=== PATIENT | male | born 1995 | race Caucasian/White ===

== ENCOUNTER 2016-09-10 18:46 | Emergency (ER) | payer SELFPAY ==
[2016-09-10 19:28] VITALS: BP 130/69
[2016-09-10] MEDS ORDERED: Lidocaine 2% PF * 5 ML VIAL INJ ONE (20:18)
--- NOTE | 2016-09-10 20:32 | RAD ---
INDICATION: Laceration between the first and second fingers. COMPARISON: No relevant prior exams available on the [facility] for comparison. TECHNIQUE: AP, lateral, and oblique views RIGHT hand. REPORT: Negative for radiopaque foreign body, subcutaneous emphysema, fracture, or articular malalignment. Unremarkable soft tissue contours. IMPRESSION: Negative radiographic exam of the RIGHT hand.
--- NOTE | 2016-09-10 22:18 | UC ---
Jose Alonso Rebecca, scribed for Anshul Zhu MD on 09/10/16 at 1948 . Laceration HPI - HPI Summary HPI Summary: Pt is a 21 y/o M who presents to [facility] c/o laceration to the R hand s/p knife injury. Approximately 1 hour [employer], the pt was trying to open something with a fishing knife when he slipped and the knife went straight into the space between the R thumb and forefinger. Reports approximately 1.5-2 inches of the knife went into his hand and that he believes the knife was dirty. Associated pain is currently mild, ranked 2/10. Initially there was slightly tingling, but now he denies any numbness or tingling. Sx aggravated and alleviated by nothing. Believes his last Tetanus shot was in 2013. - History Of Current Complaint Chief Complaint: UCLaceration Stated Complaint: PUNCTURE WOUND RIGHT HAND Time Seen by Provider: 09/10/16 19:33 Hx Obtained From: Patient Laceration Location: Hand - Right Mechanism Of Injury: Sharp Trauma - Fishing knife Onset/Duration: Lasting Hours, Still Present Severity: Mild Pain Intensity: 2 Pain Scale Used: 0-10 Numeric Aggravating Factors: Nothing Related History: Dominant Hand Left - Allergies/Home Medications Allergies/Adverse Reactions: Allergies Allergy/AdvReac Type Severity Reaction Status Date / Time No Known Allergies Allergy Verified 09/10/16 19:28 PMH/Surg Hx/FS Hx/Imm Hx Previously Healthy: Yes - Surgical History Surgical History: None - Family History Known Family History: Negative: Hypertension - Social History Alcohol Use: Rare Substance Use Type: None Smoking Status (MU): Light Every Day Tobacco Smoker Type: Cigars - Immunization History Most Recent Influenza Vaccination: no Vaccination Up to Date: Yes Review of Systems Constitutional: Negative Skin: Other - See Comments Eyes: Negative ENT: Negative Respiratory: Negative Cardiovascular: Negative Gastrointestinal: Negative Genitourinary: Negative Motor: Negative Neurovascular: Negative Musculoskeletal: Negative Neurological: Negative Psychological: Negative All Other Systems Reviewed And Are Negative: Yes - Comments Additional Review of Systems Comments: POSITIVE: Laceration to the R hand s/p knife injury. NEGATIVE: Numbness or tingling (initially there was slight tingling, but it has resolved.) Physical Exam Triage Information Reviewed: Yes Vital Signs: Initial Vital Signs Temp 98.3 F 09/10/16 19:25 Pulse 97 07/24/17 19:25 Resp 16 09/10/16 19:25 BP 130/69 09/10/16 19:25 Pulse Ox 100 09/10/16 19:25 Vital Signs Reviewed: Yes - Additional Comments The patient is well-nourished in no acute distress and in no acute pain. The skin is warm and dry and skin color reflects adequate perfusion. LInear laceration, about 1.5 cm logn, between the thumb and index finger of the right hand on the dorsal aspect in the web space. Respiratory: Chest is non-tender. Lungs are clear to auscultation and breath sounds are symmetrical and equal. Cardiovascular: Hear is regular rate and rhythm. There is no murmur or rub auscultated. There is no peripheral edema and pulses are symmetrical and equal. Musculoskeletal: No pain at all in the bone. FROM. Good capillary refill. Good pulses. Some tenderness in the first metacarpal phalangeal join. There is a lot fo ecchymosis in the thenor eminence. Neurological: Patient is alert and oriented to person, place and time. The patient has symmetrical motor strength in all four extremities. Cranial nerves are grossly intact. Deep tendon reflexes are symmetrical and equal in all four extremities. Psychiatric: The patient has an appropriate affect and does not exhibit any anxiety or depression. Laceration Repair - Laceration Repair 1 Description: Linear Laceration Size After Repair: Length (cm) - 1 cm, Depth (mm) - 10 mm/1 cm Anesthesia Used: 2.0% Lido - 5 cc into the wound Irrigation With Pressure Irrigation Device: Yes Closure Material: Sutures Closure Method: Single Layer Suture Of: Skin Suture Type: Prolene - 2 4.0 prolene sutures Diagnostics - Radiology Hand XR Xray Interpretation: No Acute Changes - Negative radiographic exam of the R hand Radiology Interpretation Completed By: Radiologist Laceration Course/Dx - Course/Dx Course Of Treatment: Pt is a 21 y/o M who presents to [facility] c/o laceration to the R hand s/p knife injury approxiamtely 1 hour [employer]. Reports approximately 1.5- 2 inches of the knife went into his hand and that he believes the knife was dirty. Associated pain is currently mild, ranked 2/10. Initially there was slightly tingling, but now he denies any numbness or tingling. Sx aggravated and alleviated by nothing. Believes his last Tetanus shot was in 2013. Hand XR reveals no acute findings. He will be D/C to home with Dx of 1 cm laceration on the R hand with repair. - Differential Dx - Laceration/Wound Differental Diagnoses: Fracture, Other - foreign body Provider Diagnoses: 1 cm laceration on the R hand with repair Discharge - Discharge Plan Condition: Stable Disposition: HOME Patient Education Materials: Care For Your Stitches (ED), Laceration (ED) Referrals: [facility] [Outside] () Additional Instructions: - Local wound care: cleanse 2 times per day with soap and water. Apply antibiotic ointment. - Follow up to have the stitches removed in 10 days. - Watch for signs of infection including redness, fever and drainage. The documentation as recorded by the Jose turk Rebecca accurately reflects the service I personally performed and the decisions made by me, Anshul Zhu MD.
== END 2016-09-10 20:56 | disposition home or self-care (01) ==
LOC: UCCORT 18:46
DX: S61.411A Laceration without foreign body of right hand, initial encounter (principal); F17.210 Nicotine dependence, cigarettes, uncomplicated; W26.0XXA Contact with knife, initial encounter
CPT/HCPCS: 12001; 99201; G0463

== ENCOUNTER 2016-09-17 14:03 | Emergency (ER) | payer SELFPAY ==
[2016-09-17 14:25] VITALS: BP 120/72
--- NOTE | 2016-09-17 14:36 | UC ---
HPI Wound/Suture Re-check - HPI Summary HPI Summary: patient had a puncture wound that had 2 stitches placed 7 days ago. the wound has healed well. - History Of Current Complaint Chief Complaint: UCWounds Stated Complaint: STITCHES REMOVAL Time Seen by Provider: 09/17/16 14:28 Hx Obtained From: Patient Onset/Duration: Sudden Onset, Lasting Days Severity: Mild - Allergies/Home Medications Allergies/Adverse Reactions: Allergies Allergy/AdvReac Type Severity Reaction Status Date / Time No Known Allergies Allergy Verified 09/17/16 14:25 PMH/Surg Hx/FS Hx/Imm Hx Previously Healthy: Yes - Surgical History Surgical History: None - Family History Known Family History: Negative: Hypertension - Social History Alcohol Use: Rare Substance Use Type: None Smoking Status (MU): Light Every Day Tobacco Smoker Type: Cigars - Immunization History Most Recent Influenza Vaccination: no Vaccination Up to Date: Yes Review of Systems Constitutional: Negative Skin: Other - healed puncture wound Eyes: Negative ENT: Negative Respiratory: Negative Cardiovascular: Negative Gastrointestinal: Negative Genitourinary: Negative Motor: Negative Neurovascular: Negative Musculoskeletal: Negative Neurological: Negative Psychological: Negative All Other Systems Reviewed And Are Negative: Yes Physical Exam Triage Information Reviewed: Yes Appearance: Well-Appearing, No Pain Distress, Well-Nourished Vital Signs: Initial Vital Signs Temp 97.7 F 09/17/16 14:21 Pulse 106 09/17/16 14:21 Resp 16 09/17/16 14:21 BP 120/72 09/17/16 14:21 Pulse Ox 100 09/17/16 14:21 Vital Signs Reviewed: Yes Eye Exam: Normal Eyes: Positive: Conjunctiva Clear ENT Exam: Normal Dental Exam: Normal Neck exam: Normal Respiratory Exam: Normal Cardiovascular Exam: Normal Abdominal Exam: Normal Bowel Sounds: Positive: Present Musculoskeletal Exam: Normal Neurological Exam: Normal Psychological Exam: Normal Skin: Positive: Other - 2 stiches in healing wound Course/Dx - Course Course Of Treatment: hx obtained, exam performed ,meds reviewed, 2 sutures removed, no further treatment necessary - Differential Dx - Laceration/Wound Differential Diagnoses: Suture Removal Provider Diagnoses: suture removal Discharge - Discharge Plan Condition: Stable Disposition: HOME Patient Education Materials: Stitches Removal (ED) Referrals: No Primary Care Phys,NOPCP [Primary Care Provider] - Additional Instructions: 1. keep the area clean and dry.
== END 2016-09-17 14:38 | disposition home or self-care (01) ==
LOC: UCCORT 14:03
DX: S61.431D Puncture wound without foreign body of right hand, subsequent encounter (principal); W26.9XXD Contact with unspecified sharp object(s), subsequent encounter; F17.210 Nicotine dependence, cigarettes, uncomplicated

== ENCOUNTER 2016-12-10 15:07 | Emergency (ER) | payer SELFPAY ==
--- NOTE | 2016-12-10 15:28 | UC ---
Respiratory Complaint HPI - History of Current Complaint Chief Complaint: UCRespiratory Stated Complaint: COUGH Time Seen by Provider: 12/10/16 15:27 Hx Obtained From: Patient - Allergies/Home Medications Allergies/Adverse Reactions: Allergies Allergy/AdvReac Type Severity Reaction Status Date / Time No Known Allergies Allergy Verified 09/17/16 14:25 PMH/Surg Hx/FS Hx/Imm Hx - Surgical History Surgical History: None - Family History Known Family History: Negative: Hypertension - Social History Alcohol Use: Rare Substance Use Type: None Smoking Status (MU): Light Every Day Tobacco Smoker Type: Cigars - Immunization History Most Recent Influenza Vaccination: no Vaccination Up to Date: Yes
[2016-12-10 15:29] VITALS: BP 149/70
--- NOTE | 2016-12-10 16:15 | UC ---
Respiratory Complaint HPI - HPI Summary HPI Summary: PND and cough for 3 weeks. Sick contacts - brother and sister with URI. Has been taking mucinex OTC - History of Current Complaint Chief Complaint: UCRespiratory Stated Complaint: COUGH Time Seen by Provider: 12/10/16 15:27 Hx Obtained From: Patient Onset/Duration: Gradual Onset Timing: Constant Severity Initially: Mild Severity Currently: Mild Character: Cough: Nonproductive Alleviating Factors: Nothing Associated Signs And Symptoms: Positive: Negative. Negative: Fever, Chills, Wheezing, Hemoptysis, Hoarseness, Sinus Discomfort - Risk Factors Pulmonary Embolism Risk Factors: Negative Cardiac Risk Factors: Negative Pseudomonas Risk Factors: Negative Tuberculosis Risk Factors: Negative - Allergies/Home Medications Allergies/Adverse Reactions: Allergies Allergy/AdvReac Type Severity Reaction Status Date / Time No Known Allergies Allergy Verified 12/10/16 15:29 Home Medications: Home Medications Acetaminophen W/ Dm [Daytime Cold Medicine] 1 liq PO DAILY PRN 12/10/16 [ History Confirmed 12/10/16] PMH/Surg Hx/FS Hx/Imm Hx Previously Healthy: Yes - Surgical History Surgical History: None - Family History Known Family History: Negative: Hypertension - Social History Alcohol Use: Occasionally Substance Use Type: None Smoking Status (MU): Light Every Day Tobacco Smoker Type: Cigarettes Amount Used/How Often: 1/2--1 PPD Length of Time of Smoking/Using Tobacco: 4-5 YRS Have You Smoked in the Last Year: Yes - Immunization History Most Recent Influenza Vaccination: no Vaccination Up to Date: Yes Review of Systems Constitutional: Fever Skin: Negative Eyes: Negative ENT: Sore Throat Respiratory: Cough Cardiovascular: Negative Gastrointestinal: Negative Genitourinary: Negative Neurological: Negative Psychological: Negative Is Patient Immunocompromised?: No All Other Systems Reviewed And Are Negative: Yes Physical Exam Triage Information Reviewed: Yes Appearance: Well-Appearing, Thin Vital Signs: Initial Vital Signs Temp 97.9 F 12/10/16 15:22 Pulse 86 12/10/16 15:22 Resp 20 12/10/16 15:22 BP 149/70 12/10/16 15:22 Pulse Ox 100 12/10/16 15:22 Vital Signs Reviewed: Yes Eye Exam: Normal Eyes: Positive: Conjunctiva Clear ENT Exam: Normal ENT: Positive: Hearing grossly normal, Pharynx normal, TMs normal. Negative: Pharyngeal erythema, Nasal congestion, Nasal drainage, TM bulging, TM red, Tonsillar swelling, Muffled/hoarse voice Neck exam: Normal Neck: Positive: Supple, Nontender, No Lymphadenopathy Respiratory Exam: Normal Respiratory: Positive: Chest non-tender, Lungs clear, Normal breath sounds, No accessory muscle use. Negative: Crackles, Rhonchi, Stridor, Wheezing Cardiovascular Exam: Normal Cardiovascular: Positive: RRR, No Murmur Neurological Exam: Normal Neurological: Positive: Alert. Negative: Fatigued, Lethargic Psychological Exam: Normal Psychological: Positive: Age Appropriate Behavior Skin Exam: Normal Skin: Negative: rashes UC Diagnostic Evaluation - Laboratory O2 Sat by Pulse Oximetry: 100 Respiratory Course/Dx - Course Course Of Treatment: Pt has tried OTC mucinex for the past week with little relief. Says that antibiotics have always worked well for him in the past when he gets bronchitis. I advised against this as his symptoms appear viral - he persisted that he would like an antibiotic. - Differential Dx/Diagnosis Differential Diagnosis/HQI/PQRI: Asthma, Influenza, Sinusitis Provider Diagnoses: Acute Bronchitis Discharge - Discharge Plan Condition: Stable Disposition: HOME Prescriptions: ceFUROXime TAB(*) [Ceftin TAB 250 MG(*)] 250 mg PO BID #20 tab Patient Education Materials: Acute Bronchitis (ED) Referrals: No Primary Care Phys,NOPCP [Primary Care Provider] - Additional Instructions: Drink plenty of fluids. If you develop a fever, new, or worsening symptoms please call our office or go to the ED.
== END 2016-12-10 16:40 | disposition home or self-care (01) ==
LOC: UCCORT 15:07
DX: J20.9 Acute bronchitis, unspecified (principal); F17.210 Nicotine dependence, cigarettes, uncomplicated
CPT/HCPCS: 99212; G0463

== ENCOUNTER 2017-12-12 20:50 | Emergency (ER) | payer MEDICAID ==
--- NOTE | 2017-12-13 10:30 | UC ---
Discharge - Sign-Out/Discharge Documenting (check all that apply): Post-Discharge Follow Up All imaging exams completed and their final reports reviewed: No Studies - Discharge Plan Condition: Stable Disposition: LEFT WITHOUT BEING SEEN Referrals: No Primary Care Phys,NOPCP [Primary Care Provider] - - Billing Disposition and Condition Condition: STABLE Disposition: Left Without Being Seen
== END 2017-12-12 21:12 | disposition left against medical advice (07) ==
LOC: UCCORT 20:50
DX: Z53.21 Procedure and treatment not carried out due to patient leaving prior to being seen by health care provider (principal)

== ENCOUNTER 2018-04-09 15:49 | Emergency (ER) | payer MEDICAID, OTHER ==
[2018-04-09 16:50] VITALS: BP 144/87
--- NOTE | 2018-04-09 17:04 | UC ---
Throat Pain/Nasal Nino HPI - HPI Summary HPI Summary: Cough and runny nose - History of Current Complaint Chief Complaint: UCGeneralIllness Stated Complaint: COUGH,RUNNY NOSE Time Seen by Provider: 04/09/18 17:03 Hx Obtained From: Patient Onset/Duration: Gradual Onset Severity: Mild Pain Intensity: 5 Cough: Nonproductive Associated Signs & Symptoms: Positive: Nasal Discharge - Allergies/Home Medications Allergies/Adverse Reactions: Allergies Allergy/AdvReac Type Severity Reaction Status Date / Time No Known Allergies Allergy Verified 04/09/18 16:50 Home Medications: Home Medications guaiFENesin ER TAB [Mucinex*] 600 mg PO BID PRN 04/09/18 [History Confirmed ] PMH/Surg Hx/FS Hx/Imm Hx Previously Healthy: Yes - Surgical History Surgical History: None - Family History Known Family History: Negative: Hypertension - Social History Alcohol Use: Occasionally Substance Use Type: None Smoking Status (MU): Light Every Day Tobacco Smoker Type: Cigars Amount Used/How Often: 1/2--1 PPD Length of Time of Smoking/Using Tobacco: 4-5 YRS Have You Smoked in the Last Year: Yes - Immunization History Most Recent Influenza Vaccination: no Vaccination Up to Date: Yes Review of Systems All Other Systems Reviewed And Are Negative: Yes Constitutional: Positive: Negative - Low grade fever here Skin: Positive: Negative Eyes: Positive: Negative ENT: Positive: Nasal Discharge, Sinus Congestion Respiratory: Positive: Negative, Cough - Non-productive occasional cough Cardiovascular: Positive: Negative Gastrointestinal: Positive: Negative Genitourinary: Positive: Negative Motor: Positive: Negative Neurovascular: Positive: Negative Musculoskeletal: Positive: Negative Neurological: Positive: Negative Psychological: Positive: Negative Is Patient Immunocompromised?: No Physical Exam Triage Information Reviewed: Yes Appearance: Well-Appearing, No Pain Distress, Well-Nourished Vital Signs: Initial Vital Signs Temp 99.4 F 04/09/18 16:45 Pulse 98 04/09/18 16:45 Resp 18 04/09/18 16:45 BP 144/87 04/09/18 16:45 Pulse Ox 100 04/09/18 16:45 Vital Signs Reviewed: Yes Eye Exam: Normal ENT: Positive: Nasal congestion - Clear nasal coryza, Nasal drainage Neck exam: Normal Neck: Positive: Supple, Nontender, No Lymphadenopathy Respiratory Exam: Normal Cardiovascular Exam: Normal Abdominal Exam: Normal Bowel Sounds: Positive: Present Musculoskeletal Exam: Normal Neurological Exam: Normal Psychological Exam: Normal Skin Exam: Normal Throat Pain/Nasal Course/Dx - Course Course Of Treatment: comfortable here in no distress. - Differential Dx/Diagnosis Provider Diagnosis: URI (upper respiratory infection) Discharge - Sign-Out/Discharge Documenting (check all that apply): Patient Departure All imaging exams completed and their final reports reviewed: No Studies - Discharge Plan Condition: Good Disposition: HOME Patient Education Materials: Upper Respiratory Infection (DC) Referrals: No Primary Care Phys,NOPCP [Primary Care Provider] - Additional Instructions: Go home and rest, increase fluids, may take some over the counter cold medicine as directed. Definite follow up with your primary care provider if no improvement in 2-3 days. Try to stop smoking. - Billing Disposition and Condition Condition: GOOD Disposition: Home
[2018-04-09 17:05] LABS: Influenza A Molecular NEGATIVE (Negative); Influenza B Molecular NEGATIVE (Negative)
== END 2018-04-09 17:25 | disposition home or self-care (01) ==
LOC: UCCORT 15:49
DX: J06.9 Acute upper respiratory infection, unspecified (principal); F17.210 Nicotine dependence, cigarettes, uncomplicated
CPT/HCPCS: 99211; G0463

== ENCOUNTER 2018-06-02 13:59 | Emergency (ER) | payer OTHER ==
--- NOTE | 2018-06-02 15:18 | UC ---
Respiratory Complaint HPI - HPI Summary HPI Summary: Pt was seen here a few weeks ago with cold symptoms. He's not sure if he fully recovered but now he has head congestion, mild sinus pressure, cough which is occasionally productive. - History of Current Complaint Stated Complaint: CHEST CONGESTION,COUGH Time Seen by Provider: 06/02/18 15:17 Hx Obtained From: Patient Onset/Duration: Gradual Onset Timing: Constant Severity Initially: Moderate Severity Currently: Mild Character: Cough: Productive - Occasionally productive unsure of color Associated Signs And Symptoms: Positive: URI, Nasal Congestion, Sinus Discomfort - Risk Factors Pulmonary Embolism Risk Factors: Negative Cardiac Risk Factors: Negative Pseudomonas Risk Factors: Negative Tuberculosis Risk Factors: Negative - Allergies/Home Medications Allergies/Adverse Reactions: Allergies Allergy/AdvReac Type Severity Reaction Status Date / Time No Known Allergies Allergy Verified 06/02/18 15:16 PMH/Surg Hx/FS Hx/Imm Hx Previously Healthy: Yes - Had bronchitis a few weeks ago - Surgical History Surgical History: None - Family History Known Family History: Negative: Hypertension - Social History Alcohol Use: Occasionally Substance Use Type: None Smoking Status (MU): Light Every Day Tobacco Smoker Type: Cigars Amount Used/How Often: 1/2--1 PPD Length of Time of Smoking/Using Tobacco: 4-5 YRS Have You Smoked in the Last Year: Yes - Immunization History Most Recent Influenza Vaccination: no Vaccination Up to Date: Yes Review of Systems All Other Systems Reviewed And Are Negative: Yes ENT: Positive: Nasal Discharge, Sinus Congestion, Sinus Pain/Tenderness Respiratory: Positive: Cough Is Patient Immunocompromised?: No Physical Exam Triage Information Reviewed: Yes Appearance: Well-Appearing, No Pain Distress, Well-Nourished Vital Signs Reviewed: Yes Eye Exam: Normal ENT: Positive: Nasal congestion, Nasal drainage, TMs normal, Uvula midline - Inflamed right turbinates with purulent drainage, green post-nasal drainage. Negative: Tonsillar swelling, Tonsillar exudate, Trismus, Muffled voice, Hoarse voice Neck exam: Normal Respiratory Exam: Normal Cardiovascular Exam: Normal Musculoskeletal Exam: Normal Neurological Exam: Normal Psychological Exam: Normal Skin Exam: Normal Respiratory Course/Dx - Course Course Of Treatment: Comfortable here. Will treat for sinusitis. Lings were clear so I think the greenish sputum is more from the sinuses. - Differential Dx/Diagnosis Provider Diagnosis: Sinusitis Discharge - Sign-Out/Discharge Documenting (check all that apply): Patient Departure All imaging exams completed and their final reports reviewed: No Studies - Discharge Plan Condition: Fair Disposition: HOME Prescriptions: Amoxicillin/Clavulanate TAB* [Augmentin TAB 875*] 875 mg PO BID 10 Days #20 tab Patient Education Materials: Sinusitis (ED) Referrals: No Primary Care Phys,NOPCP [Primary Care Provider] - [facility] [Outside] Additional Instructions: Increase fluids, Take the antibiotic with food, follow up with your doctor if no improvement in 4-5 days. - Billing Disposition and Condition Condition: FAIR Disposition: Home
[2018-06-02 15:21] VITALS: BP 132/79
== END 2018-06-02 15:56 | disposition home or self-care (01) ==
LOC: UCCORT 13:59
DX: J01.90 Acute sinusitis, unspecified (principal); F17.210 Nicotine dependence, cigarettes, uncomplicated
CPT/HCPCS: 99212; G0463

== ENCOUNTER 2019-03-28 11:43 | Emergency (ER) | payer SELFPAY ==
[2019-03-28] MEDS ORDERED: Ibuprofen TAB* 600 MG PO ONE (12:49)
--- NOTE | 2019-03-28 12:51 | UC ---
Back Pain HPI - HPI Summary HPI Summary: 23-year-old male comes in with a chief complaint of low back pain. 2 days ago patient reports he was snowboarding when he fell on ice onto his left low back.. Pain right away but he tells me that it wasn't very bad. He was able to snowboard down the rest of the hill. He got into a car and then when he got out of the car the pain was worse. Denies any anterior abdominal pain. Has not seen any blood in his urine. No change in appetite no change in bowels. Pain is worse with palpation and also movement. Yesterday he did shovel snow and also helped push a car that was stuck. He has not taken any ibuprofen or Tylenol. He did put icy hot on which did not help. Patient denies feeling lightheaded. Denies any other Injury or pain. - History of Current Complaint Chief Complaint: UCBackPain Stated Complaint: S/P FALL 2/ BACK INJURY Time Seen by Provider: 03/28/19 12:24 Pain Intensity: 10 - Allergies/Home Medications Allergies/Adverse Reactions: Allergies Allergy/AdvReac Type Severity Reaction Status Date / Time No Known Allergies Allergy Verified 03/28/19 12:27 PMH/Surg Hx/FS Hx/Imm Hx Previously Healthy: Yes - Surgical History Surgical History: None - Family History Known Family History: Negative: Hypertension - Social History Alcohol Use: Occasionally Substance Use Type: None Smoking Status (MU): Light Every Day Tobacco Smoker Type: Cigars Amount Used/How Often: 1/2--1 PPD Length of Time of Smoking/Using Tobacco: 4-5 YRS Have You Smoked in the Last Year: Yes Household Exposure Type: Cigarettes - Immunization History Most Recent Influenza Vaccination: no Vaccination Up to Date: Yes Review of Systems All Other Systems Reviewed And Are Negative: Yes Constitutional: Positive: Negative Skin: Positive: Negative Eyes: Positive: Negative ENT: Positive: Negative Respiratory: Positive: Negative Cardiovascular: Positive: Negative Gastrointestinal: Positive: Negative Genitourinary: Positive: Negative Motor: Positive: Negative Neurovascular: Positive: Negative Musculoskeletal: Positive: Other: - see hpi Neurological: Positive: Negative Psychological: Positive: Negative Is Patient Immunocompromised?: No Physical Exam Triage Information Reviewed: Yes Appearance: Well-Appearing, Well-Nourished, Pain Distress - mild with rom and exam of back Vital Signs: Initial Vital Signs Temp 98.5 F 03/28/19 12:28 Pulse 123 03/28/19 12:28 Resp 20 03/28/19 12:28 BP 137/88 03/28/19 12:28 Pulse Ox 100 03/28/19 12:28 Vital Signs Reviewed: Yes Eye Exam: Normal Eyes: Positive: Conjunctiva Clear Neck: Positive: Supple, Nontender Respiratory: Positive: Lungs clear, Normal breath sounds, No respiratory distress Cardiovascular: Positive: RRR Abdomen Description: Positive: Nontender, Soft, Other: - On palpation patient is not tender in the anterior abdomen to include not being tender in the left upper quadrant over the spleen. Bowel Sounds: Positive: Present Musculoskeletal: Positive: Other: - Patient has pain with movement of his back. Is tender to palpation lower lumbar to the left of the spinous processes. Legs have full range of motion full-strength. Neurological: Positive: Alert, Muscle Tone Normal Psychological: Positive: Age Appropriate Behavior Skin Exam: Normal Back Pain Course/Dx - Course Course Of Treatment: We discussed checking x-rays or CT scan which the patient prefers to not do if not necessary due to the cost. Patient's abdomen is nontender to palpation and he has been eating and drinking and having normal bowel and bladder function. Heart rate was elevated which may be secondary to pain. His blood pressure was normal. Patient denies being lightheaded when he stands up. A recheck of vitals showed a heart rate of 110 blood pressure 132/79 respiratory rate of 18 and oxygen 100% on room air. I discussed signs and symptoms of internal bleeding with the patient and let him know that if he got in the anterior abdominal pain or felt lightheaded like he was given a pass out or pain got worse had any other concerns he needs to go directly to the emergency department. - Differential Dx/Diagnosis Provider Diagnosis: Low back pain Discharge ED - Sign-Out/Discharge Documenting (check all that apply): Patient Departure All imaging exams completed and their final reports reviewed: No Studies - Discharge Plan Condition: Stable Disposition: HOME Prescriptions: Cyclobenzaprine TAB* [Flexeril 10 MG TAB*] 10 mg PO TID PRN #15 tab MDD 3 PRN Reason: Pain - Moderate Patient Education Materials: Acute Low Back Pain (ED), Hematuria (ED) Forms: *Work Release Referrals: [facility] [Outside] Additional Instructions: FOLLOW UP WITH YOUR DOCTOR. GO TO THE EMERGENCY DEPARTMENT IF NOT IMPROVED OR WORSE; PAIN, ABDOMINAL PAIN, CHANGE IN BOWEL OR BLADDER, YOU FEEL LIGHTHEADED OR ANY QUESTIONS OR CONCERNS. - Billing Disposition and Condition Condition: STABLE Disposition: Home
[2019-03-28 12:59] VITALS: BP 132/79
== END 2019-03-28 13:20 | disposition home or self-care (01) ==
LOC: UCCORT 11:43
DX: M54.5 Low back pain (principal); F17.210 Nicotine dependence, cigarettes, uncomplicated
CPT/HCPCS: 81003; 99212; A9270-GY; G0463